=== PATIENT | male | born 1985 | race Caucasian/White ===

== ENCOUNTER 2019-07-29 12:24 | Emergency (ER) | payer SELFPAY ==
[~2019-07-29] VITALS: Ht 185 cm; Wt 100.0 kg
[2019-07-29] MEDS ORDERED: PENI500T PO (12:44)
[2019-07-29] MEDS ORDERED: IBUP-1780 PO (12:44)
--- NOTE | 2019-07-29 12:44 | ED EENT ---
History of Present Illness General Chief Complaint: Oral/Throat Problems Stated Complaint: MOUTH,GUM PAIN L SIDE Source: patient Exam Limitations: no limitations History of Present Illness Date Seen by Provider: Jul 29, 2019 Time Seen by Provider: 12:35 Initial Comments few days of swelling left lower jaw and gums. Progressively worse with more swelling and onset of pain. Known Hx of bad teeth and need for Dental care. No skin changes. no chest pain Allergies and Home Medications Home Medications Ibuprofen 800 Mg Tablet, 800 MG PO Q8H PRN for PAIN Prescribed by: ANABELLA KIRKPATRICK on 07/29/19 1244 Penicillin V Potassium 500 Mg Tablet, 500 MG PO TID Prescribed by: ANABELLA GEIGERSTBHUPENDRA on 07/29/19 1244 Patient Home Medication List Home Medication List Reviewed: Yes Review of Systems Review of Systems Constitutional: see HPI; No chills, No fever, No malaise, No weakness Mouth: see HPI, pain, swelling Throat: no symptoms reported; denies pain, denies swelling Respiratory: No cough, No short of breath Cardiovascular: No chest pain Skin: No change in color, No lesions, No lumps, No rash Past Mdftosq-Sdetbn-Qoogzm Hx Past Med/Social Hx: Reviewed Nursing Past Med/Soc Hx Patient Social History Recent Foreign Travel: No Contact w/Someone Who Travel: No Physical Exam Vital Signs Vital Signs - First Documented 07/29/19 12:39 Temp 37.4 Pulse 112 Resp 20 B/P (MAP) 151/77 (101) Pulse Ox 98 O2 Delivery Room Air Height, Weight, BMI Height: '" Weight: lbs. oz. kg; BMI Method: General Appearance: WD/WN, no apparent distress Mouth/Throat: pharynx normal, dental tenderness; No excessive drooling; mandibular swelling (left); No maxillary swelling, No pharynx swelling, No pharynx tenderness, No tongue swollen, No tonsillar exudate; other (diffuse dental caries w moderate gum swelling, no abscess left post molar. Edema left submandibular and submental area. No cervical lymphad) Neck: non-tender, full range of motion, supple Progress/Results/Core Measures Results/Orders Vital Signs/I&O 07/29/19 07/29/19 12:39 12:46 Temp 37.4 37.4 Pulse 112 112 Resp 20 20 B/P (MAP) 151/77 (101) 151/77 Pulse Ox 98 98 O2 Delivery Room Air Room Air Departure Impression Primary Impression: Abscess, dental Disposition: HOME, SELF-CARE Condition: Stable Departure-Patient Inst. Decision time for Depature: 12:43 Referrals: NO,LOCAL PHYSICIAN (PCP/Family) Primary Care Physician Patient Instructions: Tooth Abscess (DC) Add. Discharge Instructions: Call your local Dentist to schedule a follow up exam next week. All discharge instructions reviewed with patient and/or family. Voiced understanding. Scripts Ibuprofen (Ibuprofen) 800 Mg Tablet 800 MG PO Q8H PRN for PAIN, #30 TAB 0 Refills Prov: ANABELLA KIRKPATRICK DO 07/29/19 Penicillin V Potassium (Penicillin V Potassium) 500 Mg Tablet 500 MG PO TID for 7 Days, #21 TAB Prov: ANABELLA KIRKPATRICK DO 07/29/19 ANABELLA KIRKPATRICK DO Jul 29, 2019 12:44
[2019-07-29 12:46] VITALS: BP 151/77
== END 2019-07-29 12:50 | disposition home or self-care (01) ==
LOC: ER FS 12:28
DX: K04.7 Periapical abscess without sinus (principal)
CPT/HCPCS: 99282

== ENCOUNTER 2020-10-26 14:51 | Emergency (ER) | payer SELFPAY ==
[~2020-10-26] VITALS: Ht 182.9 cm; Wt 104.7 kg
[~2020-10-26 14:51] MED LIST: IBUP-1780 PO; PENI500T PO
--- NOTE | 2020-10-26 14:54 | ED Upper Extremity ---
General Stated Complaint: RT LITTLE FINGER INJ History of Present Illness Date Seen by Provider: Oct 26, 2020 Time Seen by Provider: 14:54 Initial Comments 35-year-old male presents with injury to the right medial aspect of his hand and right little finger. Patient reports he was at work working, got frustrated and punched a refrigerator. Patient has decreased range of motion, swelling to the mid portion of the right lateral aspect of the hand. Pain throughout pinky and metacarpal region. He suffered no other injury. Allergies and Home Medications Allergies Coded Allergies: No Known Drug Allergies (Unverified , 10/26/20) Home Medications Ibuprofen 800 Mg Tablet, 800 MG PO Q8H PRN for PAIN Prescribed by: ANABELLA KIRKPATRICK on 07/29/19 1244 Penicillin V Potassium 500 Mg Tablet, 500 MG PO TID Prescribed by: ANABELLA KIRKPATRICK on 07/29/19 1244 Patient Home Medication List Home Medication List Reviewed: Yes Review of Systems Constitutional: No chills, No fever EENTM: no symptoms reported Respiratory: no symptoms reported Cardiovascular: no symptoms reported Gastrointestinal: no symptoms reported Genitourinary: no symptoms reported Musculoskeletal: see HPI Skin: no symptoms reported Psychiatric/Neurological: No Symptoms Reported Past Sobdeep-Obfurl-Xllvvj Hx Past Medical History Surgeries: Yes (cyst removed from tailbone) Respiratory: No Cardiac: No Neurological: No Genitourinary: No Gastrointestinal: No Musculoskeletal: No Endocrine: No HEENT: No Cancer: No Psychosocial: No Physical Exam Vital Signs Vital Signs - First Documented 10/26/20 14:59 Temp 36.3 Pulse 90 Resp 16 B/P (MAP) 151/108 (122) Pulse Ox 97 O2 Delivery Room Air Capillary Refill : Height, Weight, BMI Height: '" Weight: lbs. oz. kg; 29.00 BMI Method: General Appearance: mild distress Cardiovascular: normal peripheral pulses, regular rate, rhythm Respiratory: lungs clear, normal breath sounds Gastrointestinal: non tender, soft Shoulder: normal inspection Elbow/Forearm: normal inspection Wrist: Yes normal inspection Hand: Right, limited ROM, swelling Neurologic/Tendon: normal sensation Neurologic/Psychiatric: alert, normal mood/affect, oriented x 3 Skin: normal color, warm/dry Progress/Results/Core Measures Results/Orders My Orders Orders - SRINIVAS GAMEZ DO Hand 3 View Right (10/26/20 14:56) Ortho Glass (10/26/20 15:19) Vital Signs/I&O 10/26/20 14:59 Temp 36.3 Pulse 90 Resp 16 B/P (MAP) 151/108 (122) Pulse Ox 97 O2 Delivery Room Air Progress Progress Note : Progress Note Patient to be placed in a splint. Discussed with him the need for repeat x-ray in 7 to 10 days with his primary care provider or emr specialist. Patient should use ice to affected area, Tylenol ibuprofen as needed for pain, elevate hand. Patient stable to be discharged home. Diagnostic Imaging Diagonstic Imaging: Xray Plain Films/CT/US/NM/MRI: other Comments AND 3 VIEW RIGHT Indication: Right hand injury from punching a wall 3 views the right hand show some trabecular irregularity of the base of the 4th metacarpal suspicious for nondisplaced fracture. IMPRESSION: Suspected nondisplaced fracture base of the 4th metacarpal. Recommend conservative treatment and follow-up radiographs in 7-10 days. Departure Impression Primary Impression: Fracture of hand Qualified Codes: S62.91XA - Unspecified fracture of right wrist and hand, initial encounter for closed fracture Disposition: HOME, SELF-CARE Condition: Stable Departure-Patient Inst. Referrals: NO,LOCAL PHYSICIAN (PCP/Family) Primary Care Physician Patient Instructions: Hand Fracture ED Add. Discharge Instructions: Follow-up with your primary care provider or orthopedic surgeon in 7 to 10 days for repeat x-ray and further management based on that x-ray Wear splint until repeat x-ray SRINIVAS GAMEZ DO Oct 26, 2020 14:54
[2020-10-26 14:59] VITALS: BP 151/108
--- NOTE | 2020-10-26 15:13 | Diagnostic Imaging Report ---
Indication: Right hand injury from punching a wall 3 views the right hand show some trabecular irregularity of the base of the 4th metacarpal suspicious for nondisplaced fracture. IMPRESSION: Suspected nondisplaced fracture base of the 4th metacarpal. Recommend conservative treatment and follow-up radiographs in 7-10 days. Dictated by: Dictated on workstation # [id number]
== END 2020-10-26 15:51 | disposition home or self-care (01) ==
LOC: EDUNIT# 14:51 → ER FS 14:53
DX: S62.344A Nondisplaced fracture of base of fourth metacarpal bone, right hand, initial encounter for closed fracture (principal); W22.8XXA Striking against or struck by other objects, initial encounter; Y92.59 Other trade areas as the place of occurrence of the external cause; Y99.0 Civilian activity done for income or pay
CPT/HCPCS: 29125; 73130

== ENCOUNTER 2021-08-09 14:09 | Emergency (ER) | payer SELFPAY ==
[~2021-08-09] VITALS: Ht 185 cm; Wt 104.7 kg
--- NOTE | 2021-08-09 14:14 | ED Chest Pain ---
General Stated Complaint: CHEST PAIN History of Present Illness Date Seen by Provider: August 09, 2021 Time Seen by Provider: 14:14 Initial Comments 36-year-old male presents with nonspecific chest wall pain. Patient reports has been going on for at least 3 days. He reports that it is constantly there but then when asked that he has no pain. Patient reports that he cannot have any it makes it worse or better. Patient reports occasionally feels like he has to take a deep breath. Patient does not complain of any shortness of breath. No diaphoresis, no nausea no vomiting and no other systemic complaints Allergies and Home Medications Allergies Coded Allergies: No Known Drug Allergies (Unverified , 10/26/20) Patient Home Medication List Home Medication List Reviewed: Yes Ibuprofen (Ibuprofen) 800 Mg Tablet, 800 MG PO Q8H PRN for PAIN Prescribed by: ANABELLA KIRKPATRICK on 07/29/19 1244 Penicillin V Potassium (Penicillin V Potassium) 500 Mg Tablet, 500 MG PO TID Prescribed by: ANABELLA KIRKPATRICK on 07/29/19 1244 Review of Systems Review of Systems Constitutional: No chills, No fever Respiratory: See HPI Cardiovascular: Chest Pain; Denies Irregular Heart Rate, Denies L ightheadedness, Denies Palpitations Gastrointestinal: No Symptoms Reported Genitourinary: No Symptoms Reported Musculoskeletal: no symptoms reported Skin: no symptoms reported Psychiatric/Neurological: No Symptoms Reported Endocrine: No Symptoms Reported Hematologic/Lymphatic: No Symptoms Reported Past Qsqvfic-Ucwlka-Ihcozu Hx Past Medical History Surgeries: Yes (cyst removed from tailbone) Respiratory: No Cardiac: No Neurological: No Genitourinary: No Gastrointestinal: No Musculoskeletal: No Endocrine: No HEENT: No Cancer: No Psychosocial: No Physical Exam Vital Signs Vital Signs - First Documented 08/09/21 14:10 Temp 36.3 Pulse 72 Resp 18 B/P (MAP) 134/65 (88) Pulse Ox 98 O2 Delivery Room Air Capillary Refill : Height, Weight, BMI Height: '" Weight: lbs. oz. kg; 31.00 BMI Method: General Appearance: No Apparent Distress HEENT: Pharynx Normal Neck: Non Tender, Supple Respiratory: Lungs Clear, Normal Breath Sounds, No Accessory Muscle Use, Other (Mild tenderness chest wall reproduce symptoms) Cardiovascular: No Edema, Bradycardia Gastrointestinal: Non Tender, Soft Extremity: Normal Capillary Refill, Normal Inspection, Normal Range of Motion, Non Tender Neurologic/Psychiatric: Alert, Oriented x3, No Motor/Sensory Deficits, Normal Mood/Affect, dog warden II-XII Norm as Tested Skin: Normal Color, Warm/Dry Progress/Results/Core Measures Results/Orders Lab Results Laboratory Tests Test 08/09/21 14:10 Range/Units White Blood Count 10.5 4.3-11.0 10^3/uL Red Blood Count 4.49 4.30-5.52 10^6/uL Hemoglobin 15.1 13.3-17.7 g/dL Hematocrit 43 40-54 % Mean Corpuscular Volume 96 80-99 fL Mean Corpuscular Hemoglobin 34 25-34 pg Mean Corpuscular Hemoglobin Concent 35 32-36 g/dL Red Cell Distribution Width 12.9 10.0-14.5 % Platelet Count 229 130-400 10^3/uL Mean Platelet Volume 10.7 9.0-12.2 fL Immature Granulocyte % (Auto) 0 % Neutrophils (%) (Auto) 71 42-75 % Lymphocytes (%) (Auto) 22 12-44 % Monocytes (%) (Auto) 5 0-12 % Eosinophils (%) (Auto) 1 0-10 % Basophils (%) (Auto) 0 0-10 % Neutrophils # (Auto) 7.4 1.8-7.8 10^3/uL Lymphocytes # (Auto) 2.3 1.0-4.0 10^3/uL Monocytes # (Auto) 0.5 0.0-1.0 10^3/uL Eosinophils # (Auto) 0.2 0.0-0.3 10^3/uL Basophils # (Auto) 0.0 0.0-0.1 10^3/uL Immature Granulocyte # (Auto) 0.0 0.0-0.1 10^3/uL Prothrombin Time 12.6 12.2-14.7 SEC INR Comment 0.9 0.8-1.4 Activated Partial Thromboplast Time 28 24-35 SEC Sodium Level 141 135-145 MMOL/L Potassium Level 4.3 3.6-5.0 MMOL/L Chloride Level 108 H 98-107 MMOL/L Carbon Dioxide Level 23 21-32 MMOL/L Anion Gap 10 5-14 MMOL/L Blood Urea Nitrogen 6 L 7-18 MG/DL Creatinine 1.02 0.60-1.30 MG/DL Estimat Glomerular Filtration Rate 96 BUN/Creatinine Ratio 6 Glucose Level 98 70-105 MG/DL Calcium Level 9.5 8.5-10.1 MG/DL Corrected Calcium 9.3 8.5-10.1 MG/DL Magnesium Level 2.1 1.6-2.4 MG/DL Total Bilirubin 0.2 0.1-1.0 MG/DL Aspartate Amino Transf (AST/SGOT) 15 5-34 U/L Alanine Aminotransferase (ALT/SGPT) 9 0-55 U/L Alkaline Phosphatase 99 40-136 U/L Myoglobin < 21.0 10.0-92.0 NG/ML Troponin I < 0.30 <0.30 NG/ML Total Protein 7.1 6.4-8.2 GM/DL Albumin 4.2 3.2-4.5 GM/DL Lipase 19 8-78 U/L My Orders Orders - GAMEZ,SRINIVAS L DO Cbc With Automated Diff (08/09/21 14:15) Magnesium (08/09/21 14:15) Ekg Tracing (08/09/21 14:15) Comprehensive Metabolic Panel (08/09/21 14:15) Myoglobin Serum (08/09/21 14:15) Protime With Inr (08/09/21 14:15) Partial Thromboplastin Time (08/09/21 14:15) Monitor-Rhythm Ecg Trace Only (08/09/21 14:15) Aspirin Chewable Tablet (Baby Aspirin Ch (08/09/21 14:15) Ed Iv/Invasive Line Start (08/09/21 14:15) Lipase (08/09/21 14:15) Troponin I Fs (08/09/21 14:15) Chest Pa/Lat (2 View) (08/09/21 14:15) Medications Given in ED Current Medications Medications Dose Ordered Sig/Nia Route Start Time Stop Time Status Last Admin Dose Admin Aspirin 324 mg ONCE ONCE PO 08/09/21 14:15 08/09/21 14:17 DC 08/09/21 14:40 324 MG Vital Signs/I&O 08/09/21 14:10 Temp 36.3 Pulse 72 Resp 18 B/P (MAP) 134/65 (88) Pulse Ox 98 O2 Delivery Room Air Progress Progress Note : Progress Note Patient with nonspecific chest wall pain. Very unlikely acute coronary syndrome. Patient with negative EKG for acute changes, negative troponin negative chest x-ray. Patient's symptoms seem to get worse of it with activity or palpation. We will try anti-inflammatory and muscle relaxant. Patient should follow-up with his primary care provider if symptoms are not improved or resolved near the end of this week. Patient stable and discharged Initial ECG Impression Date: August 09, 2021 Initial ECG Impression Time: 14:15 Initial ECG Rate: 52 Initial ECG Rhythm: S.Bradley Initial ECG Intervals: Normal Initial ECG Impression: Sinus Bradycardia Diagnostic Imaging Diagonstic Imaging: Xray Plain Films/CT/US/NM/MRI: chest Comments Date of Exam:08/09/21 CHEST PA/LAT (2 VIEW) EXAMINATION: Chest 2 view HISTORY: chest pain, cough COMPARISON: None available. FINDINGS: Heart size and pulmonary vasculature are normal. The lungs are clear without consolidation, pleural effusion, or pneumothorax. The osseous structures are intact. IMPRESSION: 1. No acute radiographic abnormality in the chest. Departure Impression Primary Impression: Acute nonspecific chest pain with low risk of coronary artery disease Disposition: 01 HOME, SELF-CARE Condition: Stable Departure-Patient Inst. Referrals: NO,LOCAL PHYSICIAN (PCP/Family) Primary Care Physician Patient Instructions: Chest Pain (DC), Chest Pain That Is Not Caused by the Heart (DC) Add. Discharge Instructions: Follow-up with your primary care provider if symptoms have not improved or resolved by or Monday of this week Return to the ER as needed Scripts Naproxen (Naprosyn) 500 Mg Tablet 500 MG PO BID, #30 TAB 0 Refills Prov: SRINIVAS GAMEZ DO 08/09/21 Cyclobenzaprine HCl (Cyclobenzaprine HCl) 10 Mg Tablet 10 MG PO Q8H PRN for SPASMS, #15 TAB 0 Refills Prov: SRINIVAS GAMEZ DO 08/09/21 Work/School Note: Work Release Form Date Seen in the Emergency Department: August 09, 2021 Return to Work: August 12, 2021 Restrictions: No Restrictions SRINIVAS GAMEZ DO August 09, 2021 14:14
[2021-08-09] MEDS ORDERED: ASPIRIN 81 MG CHEW (CHILDREN'S ASA) PO ONE (14:15)
--- NOTE | 2021-08-09 14:37 | Diagnostic Imaging Report ---
EXAMINATION: Chest 2 view HISTORY: chest pain, cough COMPARISON: None available. FINDINGS: Heart size and pulmonary vasculature are normal. The lungs are clear without consolidation, pleural effusion, or pneumothorax. The osseous structures are intact. IMPRESSION: 1. No acute radiographic abnormality in the chest. Dictated by: Dictated on workstation # [id number]
[2021-08-09 14:38] LABS: BASOPHILS % (AUTO) 0 % (0-10); EOSINOPHILS # (AUTO) 0.2 10^3/uL (0.0-0.3); EOSINOPHILS % (AUTO) 1 % (0-10); HEMATOCRIT 43 % (40-54); HEMOGLOBIN 15.1 g/dL (13.3-17.7); LYMPHOCYTES # (AUTO) 2.3 10^3/uL (1.0-4.0); LYMPHOCYTES % (AUTO) 22 % (12-44); MEAN CORPUSCULAR HEMOGLOBIN 34 pg (25-34); MEAN CORPUSCULAR HGB CONC 35 g/dL (32-36); MEAN CORPUSCULAR VOLUME 96 fL (80-99); MEAN PLATELET VOLUME 10.7 fL (9.0-12.2); MONOCYTES # (AUTO) 0.5 10^3/uL (0.0-1.0); MONOCYTES % (AUTO) 5 % (0-12); NEUTROPHILS # (AUTO) 7.4 10^3/uL (1.8-7.8); NEUTROPHILS % (AUTO) 71 % (42-75); PLATELET COUNT 229 10^3/uL (130-400); WHITE BLOOD COUNT 10.5 10^3/uL (4.3-11.0)
[2021-08-09 14:48] LABS: INR 0.9 (0.8-1.4); PROTHROMBIN TIME PATIENT 12.6 SEC (12.2-14.7)
[2021-08-09 15:03] LABS: CARBON DIOXIDE 23 MMOL/L (21-32); CHLORIDE 108 MMOL/L (98-107); POTASSIUM 4.3 MMOL/L (3.6-5.0); SODIUM 141 MMOL/L (135-145)
[2021-08-09 15:04] LABS: ALANINE AMINOTRANSFERASE 9 U/L (0-55); ALBUMIN 4.2 GM/DL (3.2-4.5); ALKALINE PHOSPHATASE 99 U/L (40-136); BILIRUBIN,TOTAL 0.2 MG/DL (0.1-1.0); BUN/CREATININE RATIO 6; CALCIUM 9.5 MG/DL (8.5-10.1); CREATININE SERUM 1.02 MG/DL (0.60-1.30); GFR ESTIMATED 96; GLUCOSE 98 MG/DL (70-105); LIPASE 19 U/L (8-78); MAGNESIUM 2.1 MG/DL (1.6-2.4); TOTAL PROTEIN 7.1 GM/DL (6.4-8.2)
[2021-08-09 15:12] VITALS: BP 120/66
[2021-08-09] MEDS ORDERED: CYCL10TA25 PO (15:15)
[2021-08-09] MEDS ORDERED: NAPR-1071 PO (15:15)
== END 2021-08-09 15:18 | disposition home or self-care (01) ==
LOC: EDUNIT# 14:09 → ER FS 14:10
DX: R07.89 Other chest pain (principal)
CPT/HCPCS: 36415; 71046; 80053; 83690; 83735; 83874; 84484; 85025; 85610; 85730; 93005; 93041